=== PATIENT | male | born 1935 | race African-American/Black ===

== ENCOUNTER 2016-10-18 20:28 | Inpatient (IN) ==
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
[2016-10-18 20:54] LABS: BE 1.9 mmoll (-3.0-3.0); BLOOD TYPE ARTERIAL; METHB 1.3 % (0.0-1.5); O2(CT) 12.2 mL/dL (15.0-23.0); PO2(98.6) 50 mmHg (60-100); SAMPLE BLOOD; SAO2 84.5 % (95.0-100.0); THB 10.7 g/dL (11.5-17.4); pH(98.6) 7.32 (7.35-7.45)
[2016-10-18 21:16] LABS: PCO2(98.6) 56 mmHg (35-45)
[2016-10-18 21:17] LABS: ALLEN TEST YES; DRAW SITE R RADIAL; MODALITY CANNULA
[2016-10-18 21:37] LABS: MANUAL DIFF NEEDED? NO
[2016-10-18 21:57] LABS: BASO% 0.1 % (0.0-0.8); CALCIUM 8.5 mg/dL (8.8-10.2); EOS# 0.22 X1000 (0.0-0.7); EOS% 3.1 % (0.0-10.0); HEMATOCRIT 32.6 % (42.0-52.0); IMM GRAN# 0.01 X1000 (0.0-0.04); IMM GRAN% 0.1 % (0.0-0.5); LYMPH# 0.91 X1000 (1.2-3.4); LYMPH% 12.8 % (20.5-51.1); MCH 29.2 PG (27-31); MCHC 30.7 g/dL (33-37); MCV 95.3 FL (81-99); MONO# 0.76 X1000 (0.11-0.59); MONO% 10.7 % (1.7-9.3); MPV 11.4 FL (7.4-10.4); NEUT% 73.2 % (42.2-75.2); PLT 223 X1000 (130-400); POTASSIUM 4.3 mmol/L (3.5-5.1); RBC 3.42 XMIL (4.7-6.1); TOTAL BILIRUBIN 0.2 mg/dL (0.20-1.00); TOTAL PROTEIN 6.5 g/dL (6.3-8.3)
[2016-10-18] MEDS ORDERED: ZOSYN 3.375 GM/NS 50 ML IV ONE (22:35)
[2016-10-18 22:47] LABS: INR 1.09 (0.86-1.15); PTT PL 31.1 Seconds (22.6-43.9)
[2016-10-18 23:37] LABS: URINE CULTURE PL NEEDED? NO; URINE SOURCE CATH
--- NOTE | 2016-10-18 23:52 | EKG Report ---
Test Performed on : 10/18/2016 8:36:47 PM Test Reason : ER1 Blood Pressure : / mmHG Vent. Rate : 066 BPM Atrial Rate : 066 BPM P-R Int : 276 ms QRS Dur : 108 ms QT Int : 464 ms P-R-T Axes : 033 024 -08 degrees QTc Int : 486 ms Sinus rhythm. with 1st degree AV block. Low voltage QRS Prolonged QT Abnormal ECG When compared with ECG of 16-AUG-2016 04:16, No significant change was found Unconfirmed Result
[2016-10-18 23:55] LABS: UR AMPHETAMINES QUAL NONE DETECTED (NONE DETECT); UR BARBITUATES QUAL NONE DETECTED (NONE DETECT); UR BENZODIAZEPIN QUAL NONE DETECTED (NONE DETECT); UR CANNABINOIDS QUAL NONE DETECTED (NONE DETECT); UR COCAINE QUAL NONE DETECTED (NONE DETECT); UR MDMA QUAL NONE DETECTED (NONE DETECT); UR METHADONE QUAL NONE DETECTED (NONE DETECT); UR METHAMPHETAMINE QUAL PRESUMPTIVE POSITIVE (NONE DETECT); UR OPIATES QUAL NONE DETECTED (NONE DETECT); UR OXYCODONE QUAL NONE DETECTED (NONE DETECT); UR PCP QUAL NONE DETECTED (NONE DETECT); UR TCA QUAL NONE DETECTED (NONE DETECT)
[2016-10-19 00:16] LABS: BILIRUBIN URINE NEGATIVE (NEGATIVE); BLOOD URINE NEGATIVE (NEGATIVE); CLARITY CLEAR (CLEAR); COLOR YELLOW; GLUCOSE URINE NEGATIVE (NEGATIVE); LEUKOCYTES URINE NEGATIVE (NEGATIVE); NITRITE URINE NEGATIVE (NEGATIVE); PROTEIN URINE TRACE mg/dL (NEGATIVE); UROBILINOGEN URINE NORMAL
[2016-10-19 00:18] LABS: URINE CAST GRANULAR PRESENT /LPF; URINE EPITHELIAL CELLS <10 /HPF (<10); URINE RBC <10 /HPF (<10); URINE WBC <10 /HPF (<10)
[2016-10-19] MEDS ORDERED: TYLENOL ARTHRITIS PO PRN (00:23)
[2016-10-19] MEDS: ZOSYN 3.375 GM/NS 50 ML IV SCH ×4 (05:20→23:07)
[2016-10-19] MEDS: DUONEB (A & A) INH SCH ×5 (09:30→23:15)
[2016-10-19] MEDS: PRILOSEC PO SCH (10:02)
[2016-10-19] MEDS: NORVASC PO SCH (10:02)
[2016-10-19] MEDS: MIRALAX PO SCH (10:03)
[2016-10-19] MEDS: ASPIRIN PO SCH (10:03)
--- NOTE | 2016-10-19 11:53 | Diag Imaging Result Document ---
PROCEDURE NAME: CHEST-PORTABLE - 10/18/2016 ERECT PORTABLE CHEST: TIME: 2105 hours. FINDINGS: There is bibasilar atelectasis, which has worsened slightly, particularly with regard to the right middle lobe since the previous study of 08/17/2016. Otherwise, there has been no significant change. IMPRESSION: Atelectasis.
[2016-10-19] MEDS ORDERED: DUONEB (A & A) INH PRN (12:42)
[2016-10-19] MEDS ORDERED: NS 1,000 ML IV SCH (13:00)
[2016-10-19] MEDS: LEVAQUIN 750 MG/D5W 150 ML IV SCH (13:13)
[2016-10-19] MEDS: LOVENOX SUBQ SCH (13:15)
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
[2016-10-19] MEDS: HUMULIN R DOSE (PARKWAY) SUBQ SCH ×2 (17:17→21:37)
[2016-10-19] MEDS: HUMULIN 70/30 (PARKWAY) SUBQ SCH (17:34)
[2016-10-19 18:13] LABS: UR BARBITUATES QUAL NONE DETECTED (NONE DETECT); UR BENZODIAZEPIN QUAL NONE DETECTED (NONE DETECT); UR CANNABINOIDS QUAL NONE DETECTED (NONE DETECT); UR COCAINE QUAL NONE DETECTED (NONE DETECT); UR MDMA QUAL NONE DETECTED (NONE DETECT); UR METHADONE QUAL NONE DETECTED (NONE DETECT); UR OPIATES QUAL NONE DETECTED (NONE DETECT); UR OXYCODONE QUAL NONE DETECTED (NONE DETECT); UR PCP QUAL NONE DETECTED (NONE DETECT); UR TCA QUAL NONE DETECTED (NONE DETECT)
[2016-10-19 18:14] LABS: UR AMPHETAMINES QUAL NONE DETECTED (NONE DETECT); UR METHAMPHETAMINE QUAL PRESUMPTIVE POSITIVE (NONE DETECT)
[2016-10-19] MEDS ORDERED: NS 250 ML IV ONE (21:19)
[2016-10-19] MEDS: CELEXA PO SCH (21:36)
[2016-10-19] MEDS: FLOMAX PO SCH (21:37)
[2016-10-19] MEDS ORDERED: NS 250 ML ONE (21:54)
[2016-10-19] MEDS: XALATAN 0.005% OPH SOLN BOTH EYES SCH (23:07)
--- NOTE | 2016-10-20 00:46 | CONSULTATION ---
DATE OF CONSULTATION: 10/19/2016 ATTENDING PHYSICIAN: Dr. Pan. REASON FOR CONSULTATION: Respiratory distress. CHIEF COMPLAINT: Shortness of breath and lethargy. HISTORY OF PRESENTING ILLNESS: Mr. Lily Hussein is an 80-year-old male with history of diabetes, hypertension, history of CVA, who was apparently in his usual state of health, until somebody noticed that the patient was unresponsive in the [facility]. He had underwent CPR briefly, and was brought in by the EMS to the ER for further evaluation. On arrival of EMS, the patient was awake, alert and responsive. In the emergency room patient had an EKG, which was normal. Mild shortness of breath noted. No cough or wheezing at this point. In the emergency room patient labs revealed elevated CK-MB, along with a drug screen which was positive for methamphetamines. ALLERGIES: No known drug allergies. PAST MEDICAL HISTORY: Diabetes, CVA, hypotension. PAST SURGICAL HISTORY: Bilateral below-knee amputation, back surgery, exploratory laparotomy. FAMILY HISTORY: Positive for diabetes in his mother and sister, hypertension in brother and sister. MEDICATIONS: Flomax, lisinopril, hydrochlorothiazide. REVIEW OF SYSTEMS: Negative. PHYSICAL EXAMINATION: vital signs: Blood pressure 130/52, heart rate 60, respiratory rate is 14. General: Patient is lethargic, chronically ill-appearing, in moderate respiratory distress. Head and Neck: Normocephalic, atraumatic. Cardiac: S1-S2 heard. Lungs: Decreased breath sounds bilaterally with crackles. Bilateral wheezing diffuse wheezing heard. Abdomen: Soft. Extremities: No edema. PHOTOGRAPH MOUNTER: No confusion. LABS: 1. White count was 7.12, hemoglobin was 10, hematocrit was 32, platelet count was 223,000. PT 114, INR 1.09. ABG, pH 7.32, pCO2 of 56, PO2 of 50 on 2 L nasal cannula. 2. Chemistry: Sodium 142, potassium 4.3, chloride 105, CO2 of 30, BUN 30, creatinine 1.2. LFTs within normal limits. Troponin was 0.980, 2nd troponin was 0.346. Microbiology: Blood cultures negative. Reports chest x-ray shows atelectasis in the right middle lobe, and bibasilar atelectasis slightly worse in the right middle lobe, there has been no significant change. U-tox was positive for methamphetamine. ASSESSMENT AND PLAN: 1. Right-sided pneumonia, possible aspiration. 2. Hypoxic respiratory failure. Recommend continuing broad-spectrum antibiotics, and since patient is from [facility] cover for institutional or healthcare associated pneumonia. Follow up sputum and blood cultures. Continue supportive care along with aspiration precautions for hypoxia. Continue oxygen via nasal cannula to keep saturation above 90%. 3. Chronic hypercapnic respiratory failure. Continue monitoring oxygen saturation, as well as, CO2 levels. We will use BiPAP if necessary due to respiratory distress. 4. N-STEMI. Monitor closely, and monitor cardiac enzymes. Further management as per Cardiology. We will continue to monitor.
[2016-10-20] MEDS: DUONEB (A & A) INH SCH ×5 (02:45→20:14)
[2016-10-20] MEDS: ZOSYN 3.375 GM/NS 50 ML IV SCH ×4 (04:48→23:34)
[2016-10-20] MEDS: HUMULIN R DOSE (PARKWAY) SUBQ SCH ×4 (06:25→20:37)
[2016-10-20] MEDS: PRILOSEC PO SCH (06:33)
[2016-10-20 06:37] LABS: HEMATOCRIT 30.2 % (42.0-52.0); HEMOGLOBIN 8.9 g/dL (14.0-18.0); MCH 27.9 PG (27-31); MCHC 29.5 g/dL (33-37); MCV 94.7 FL (81-99); MPV 11.1 FL (7.4-10.4); RBC 3.19 XMIL (4.7-6.1)
[2016-10-20 06:58] LABS: HEMOGLOBIN A1C 6.4 % (4.8-6.0)
[2016-10-20 07:24] LABS: CALCIUM 8.3 mg/dL (8.8-10.2); POTASSIUM 3.6 mmol/L (3.5-5.1)
[2016-10-20] MEDS ORDERED: NON-FORMULARY MED (Lisinopril/Hydrochlorothiazide [Lisinopril-Hctz 20-25 Mg Tab] 1 EACH) PO SCH (09:00)
[2016-10-20] MEDS ORDERED: HYDROCHLOROTHIAZIDE PO SCH (09:00)
[2016-10-20] MEDS ORDERED: PRINIVIL PO SCH (09:00)
[2016-10-20] MEDS: HUMULIN 70/30 (PARKWAY) SUBQ SCH ×2 (09:03→16:36)
[2016-10-20] MEDS: TOPROL XL PO SCH (09:03)
[2016-10-20] MEDS: ASPIRIN PO SCH (09:03)
[2016-10-20] MEDS: MIRALAX PO SCH (09:03)
[2016-10-20] MEDS: NORVASC PO SCH (09:03)
--- NOTE | 2016-10-20 09:45 | Diag Imaging Result Document ---
PROCEDURE NAME: CHEST-PORTABLE - 10/20/2016 AP PORTABLE CHEST AT 0516 HOURS: FINDINGS: There is hazy opacity of the left base. There is atelectasis in the right base. The inspiration is generally suboptimal and overall the appearance of the chest has not changed since 10/18/2016. IMPRESSION: Bibasilar atelectasis. The possibility of pneumonia on the left cannot be excluded.
[2016-10-20] MEDS: LEVAQUIN 750 MG/D5W 150 ML IV SCH (11:46)
[2016-10-20] MEDS ORDERED: NS 1,000 ML IV SCH (13:00)
[2016-10-20] MEDS: LOVENOX SUBQ SCH ×2 (13:25→13:36)
--- NOTE | 2016-10-20 15:32 | PROGRESS NOTE ---
DATE: 10/20/2016 SUBJECTIVE: Patient has no focal complaints. OBJECTIVE: Vital signs: Blood pressure 124/59, heart rate of 82, respiratory rate 18, temperature 98 degrees, 97% on 2 L. Cardiovascular: Regular rate and rhythm. Pulmonary: Bilateral breath sounds. Clear to auscultation. GI: Soft, nontender, nondistended. Bowel sounds are positive. LABORATORY STUDIES: White count 6, hemoglobin and hematocrit of 8 and 30, platelets of 208,000. Chemistries: Sodium 146, BUN and creatinine of 34 and 1.5. IMAGING: Chest x-ray still shows left lower lobe infiltrate. PROBLEM LIST: 1. Pneumonia left lower lobe. He is on Levaquin and Zosyn. We will continue to monitor that. We will continue breathing treatments. He is obviously high aspiration risk. 2. Diabetes appears to be stable on current insulin regimen. 3. Acute kidney injury. His creatinine varies from 1.2, has been as high as 2.4, so I think he is fairly close to his baseline, but I am going to give him a little bit of hydration and we will follow. DISPOSITION: Possibly back to the snf in 1-2 days. I think he is stable for
[2016-10-20] MEDS: FLOMAX PO SCH (20:32)
[2016-10-20] MEDS: CELEXA PO SCH (20:32)
[2016-10-20] MEDS: XALATAN 0.005% OPH SOLN BOTH EYES SCH (21:37)
[2016-10-21] MEDS: DUONEB (A & A) INH SCH ×7 (03:00→22:45)
--- NOTE | 2016-10-21 03:41 | PROGRESS NOTE ---
DATE: 10/20/2016 SUBJECTIVE: Patient seen and examined. More awake. Continues to have respiratory distress on nasal cannula at 2-3 L. REVIEW OF SYSTEMS: Negative for fever. PHYSICAL EXAMINATION: Vitals: Blood pressure 124/59, heart rate 80s, respiratory rate 18, temperature 98 degrees, oxygen saturation 97-94% on 2 L. General: Chronically ill-appearing, in mild respiratory distress. Heart: S1-S2 heard. Lungs: Decreased breath sounds at the bases. No wheezing heard. GI: Soft. Bowel sounds are present. EDGE MOLDER: Slow to respond to questions but awake. LABS: White count 6000, hemoglobin 8, hematocrit 30, platelets 208,000. Chemistry: Sodium 146, BUN 24, creatinine 1.5. Imaging: Left lower lobe infiltrate. ASSESSMENT AND PLAN: 1. Left lower lobe pneumonia. 2. Hypoxic respiratory failure. 3. Diabetes. 4. Acute kidney injury. PLAN: 1. Patient clinically has improved slightly. Continue Levaquin and Zosyn to cover for healthcare associated pneumonia. Continue aspiration precautions. 2. For hypoxic respiratory failure, continue oxygen to keep saturation above 88 % to 90%. We will wean off of oxygen if sats > 88%. 3. Diabetes. Current insulin regimen. 4. Acute kidney injury. Monitor creatinine and gentle hydration. 5. Patient stable to be transferred to floor out of ICU. [facility]ITALNathaniel
[2016-10-21] MEDS: ZOSYN 3.375 GM/NS 50 ML IV SCH ×4 (04:42→23:42)
[2016-10-21] MEDS: PRILOSEC PO SCH (06:24)
[2016-10-21] MEDS: HUMULIN R DOSE (PARKWAY) SUBQ SCH ×2 (06:25→10:24)
[2016-10-21 06:35] LABS: HEMATOCRIT 29.6 % (42.0-52.0); HEMOGLOBIN 8.9 g/dL (14.0-18.0); MCH 28.3 PG (27-31); MCHC 30.1 g/dL (33-37); MCV 94.3 FL (81-99); MPV 12.3 FL (7.4-10.4); RBC 3.14 XMIL (4.7-6.1)
[2016-10-21 07:14] LABS: MAGNESIUM 1.9 mg/dL (1.5-2.7)
[2016-10-21 07:18] LABS: CALCIUM 8.3 mg/dL (8.8-10.2); POTASSIUM 4.2 mmol/L (3.5-5.1)
[2016-10-21] MEDS: MIRALAX PO SCH (10:11)
[2016-10-21] MEDS: ASPIRIN PO SCH (10:11)
[2016-10-21] MEDS: HUMULIN 70/30 (PARKWAY) SUBQ SCH ×2 (10:11→16:28)
[2016-10-21] MEDS: TOPROL XL PO SCH (10:11)
[2016-10-21] MEDS: NORVASC PO SCH (10:12)
[2016-10-21] MEDS: LEVAQUIN 750 MG/D5W 150 ML IV SCH (11:53)
--- NOTE | 2016-10-21 11:55 | PROGRESS NOTE ---
DATE: 10/21/2016 SUBJECTIVE: Patient resting quietly in bed. No complaints voiced. OBJECTIVE: Vital signs: Temp 97.7 degrees, pulse 83, respirations 18, blood pressure 133/66, saturating 100% on 2 L via nasal cannula. HEENT: Normocephalic and atraumatic. Pupils are equal, round, reactive to light. Extraocular movements are intact. The oropharynx and nares are clear. Neck: Supple. Lungs: Were clear to auscultation bilaterally with equal lung expansion and chest wall movement. The patient was noted to have some upper airway wheezing but lungs were clear. Heart: Regular rate and rhythm. No murmurs, rubs, or gallops. Abdomen: Abdomen is soft, nontender, nondistended. Bowel sounds are present x4 quadrants. Extremities: No clubbing, cyanosis, or edema. Neurological: Cranial nerves 2 through 12 appear grossly intact. LABORATORY DATA: Showed a white blood cell count of 7.50, hemoglobin 8.9, hematocrit 29.6, platelets of 188,000. Sodium of 142, potassium 4.2, chloride 107, CO2 25, BUN of 32, creatinine 1.5, glucose 81, magnesium 1.9. ASSESSMENT: 1. Left lower lobe pneumonia. Continue antibiotics and aspiration precautions. Continues to improve. 2. Hypoxic respiratory failure. Will continue his O2 to keep saturations between 88 and 99%. 3. Acute kidney injury. Continues to be around his baseline of 1.5. We have discontinued his IV hydration and will recheck a BMP in the a.m. 4. Diabetes. Stable on current insulin regimen. DISPOSITION: Will discharge back to the retirement hopefully in the a.m. if he continues to improve. Dictated by EMMA Mata for Wyatt Pan MD
[2016-10-21] MEDS: LOVENOX SUBQ SCH (14:14)
[2016-10-21] MEDS: HUMULIN R (PARKWAY) SUBQ SCH ×2 (16:28→23:39)
[2016-10-21] MEDS: XALATAN 0.005% OPH SOLN BOTH EYES SCH (20:07)
[2016-10-21] MEDS: FLOMAX PO SCH (20:07)
[2016-10-21] MEDS: CELEXA PO SCH (20:07)
--- NOTE | 2016-10-21 21:07 | PROGRESS NOTE ---
DATE: 10/21/2016 SUBJECTIVE: Patient seen and examined this afternoon. Awake. No acute changes since yesterday. Continues to have respiratory distress on oxygen noted. [place] gurgling sound coming from oral cavity from secretions. OBJECTIVE: Vital Signs: Temperature 97. Pulse 83. Oxygen saturation is 100% on 2 L. Blood pressure : 123/76 Head and Neck: Normocephalic, atraumatic. Lungs: Decreased air entry with scattered wheezing especially in the upper airways. Heart: S1, S2 heard. Central Nervous System: Awake. Answers simple questions. Slow to respond to commands. LABORATORY DATA: White count is 7000, hemoglobin 8.9, hematocrit 29, sodium 142 , potassium 4.2, chloride 107, CO2 of 25, BUN 32, creatinine 1.5. ASSESSMENT: 1. Left lower lobe pneumonia. 2. Hypoxic respiratory failure. 3. Possible chronic aspiration. 4. Acute kidney injury. 5. Diabetes. PLAN: Continue antibiotics. Cultures have been negative. On aspiration precautions. The patient appears to have clinically improved to a certain extent. Continue oxygen to keep saturation above 88% to 90%. Recommend out of bed to chair and incentive spirometry if possible. Monitor renal function and blood sugars on current regimen. Discharge to longterm when patient is close to baseline. [facility]
[2016-10-22] MEDS: DUONEB (A & A) INH SCH ×4 (03:26→15:06)
[2016-10-22] MEDS: PRILOSEC PO SCH (06:13)
[2016-10-22] MEDS: ZOSYN 3.375 GM/NS 50 ML IV SCH ×3 (06:14→17:25)
[2016-10-22] MEDS: HUMULIN R (PARKWAY) SUBQ SCH ×3 (06:41→17:14)
[2016-10-22] MEDS ORDERED: NS 1,000 ML ONE (09:20)
[2016-10-22] MEDS: MIRALAX PO SCH (09:41)
[2016-10-22] MEDS: TOPROL XL PO SCH (09:41)
[2016-10-22] MEDS: HUMULIN 70/30 (PARKWAY) SUBQ SCH ×2 (09:41→17:14)
[2016-10-22] MEDS: ASPIRIN PO SCH (09:41)
[2016-10-22] MEDS: NORVASC PO SCH (09:41)
[2016-10-22] MEDS: LEVAQUIN 750 MG/D5W 150 ML IV SCH (12:52)
--- NOTE | 2016-10-22 14:30 | DISCHARGE SUMMARY ---
ADMISSION DATE: 10/19/2016 DISCHARGE DATE: 10/22/2016 DISCHARGE DIAGNOSES: 1. Left lower lobe pneumonia. 2. Episodic periods of apnea with acute respiratory failure. 3. Diabetes. 4. History of cerebrovascular accident with dysphagia. 5. Hypertension. ADMISSION DIAGNOSES: 1. Left lower lobe pneumonia. 2. Apnea. 3. Diabetes. 4. Hypertension. HISTORY OF PRESENT ILLNESS AND HOSPITAL COURSE: Briefly this is an 80-year-old male with history of diabetes and hypertension who came from half-way with reported unresponsive episode but I think it was likely associated with apnea. Reportedly CPR was involved or CPR had been done but patient did not have an acute cardiac event, although he did have a mild elevation in his troponins. Also urine drug screen x2 was positive for methamphetamine, that was on admission. He was placed empirically on Zosyn and Levaquin because of institutional acquired coverage. Apnea episode was thought possibly to be associated with pneumonia versus aspiration event versus central or obstructive sleep apnea. The patient was admitted, placed on antibiotics. Repeat chest x-ray just was read as bibasilar atelectasis with possible left pneumonia. Patient slowly clinically improved. He does have some renal insufficiency. Baseline creatinine usually less than 1.5 I believe but has been as high as 2.4. Oxygen was maintained. He is 97% to 100% on 2 L. The patient has been afebrile since admission. He had no white count. Hemoglobin and hematocrit were 8 and 29 after hydration. Chemistry prior to discharge was 1.5. That was the day before discharge. He was evaluated by speech therapy and felt that he could continue his pureed diet with thickened liquids. Pulmonary was consulted because of his apnea episode, recommended keeping O2 to 88% to 90% I felt patient was close to baseline and stable for discharge on 10/22/2016. DISCHARGE MEDICATIONS: Norvasc 5 daily, Flomax 0.4 daily, Prilosec 40 daily, Xalatan 0.05% 2.5 mL 1 drop both eyes, NPH regular insulin 77 units daily in the morning and 5 units at night, Tylenol Arthritis 650 q.6 h., aspirin 81 daily, DuoNeb q.6 h., MiraLAX 17 daily, Toprol-XL 25 daily, and Augmentin 500 q.12 for another 7 days. DISCHARGE INSTRUCTIONS: 1. Would recommend follow up chest x-ray in 4-6 weeks. 2. Pureed diet. 3. Oxygen keep to saturations above 92%, especially at night. 4. BNP and CBC in 1 week. 5. Consideration for outpatient sleep study. 6. Continue to follow. DISCHARGE CONDITION: Stable. TIME SPENT: 35 minute discharge.
[2016-10-22] MEDS: LOVENOX SUBQ SCH (15:20)
[2016-10-22 16:00] VITALS: BP 171/65
--- NOTE | 2016-10-23 00:29 | PROGRESS NOTE ---
DATE: 10/22/2016 SUBJECTIVE: Patient seen and examined. Shortness of breath and respiratory distress slightly better. No significant audible wheezes or gurgling heard today. No fevers. Continues to require 2-3 L of oxygen. PHYSICAL EXAMINATION: General: Chronically ill-appearing, in mild respiratory distress. Heart: S1-S2 heard. Lungs: Decreased air entry bilaterally. Abdomen: Soft. Extremities: No edema. RADIOGRAPHER MAMMOGRAPHER: No confusion. Neurologic: Awake. LABS: Reviewed. ASSESSMENT AND PLAN: 1. Pneumonia. 2. Hypoxic respiratory failure. 3. History of CVA. PLAN: Patient has improved pulmonary rodriguez, he is likely close to baseline. Continue antibiotics, aspiration precautions and oxygen to keep saturation above 88 to 90%. Okay from pulmonary standpoint to be discharged to shelter. Plan discussed with Dr. Pan. [facility]
== END 2016-10-22 17:40 | DRG 190 ==
LOC: P.ED 20:28 → P.ICU 10-19 → P.MEDSURG 10-20 15:27
PROVIDERS: ATTEND Internal Medicine
DX: J44.0 Chronic obstructive pulmonary disease with (acute) lower respiratory infection (principal); J18.9 Pneumonia, unspecified organism; J96.01 Acute respiratory failure with hypoxia; N17.9 Acute kidney failure, unspecified; J96.12 Chronic respiratory failure with hypercapnia; E11.9 Type 2 diabetes mellitus without complications; I69.391 Dysphagia following cerebral infarction; J98.11 Atelectasis; R13.10 Dysphagia, unspecified; I10 Essential (primary) hypertension; Y95 Nosocomial condition; Z86.14 Personal history of Methicillin resistant Staphylococcus aureus infection; Z89.512 Acquired absence of left leg below knee; Z89.511 Acquired absence of right leg below knee; Z83.3 Family history of diabetes mellitus; Z82.49 Family history of ischemic heart disease and other diseases of the circulatory system; Z79.82 Long term (current) use of aspirin; Z79.899 Other long term (current) drug therapy
CPT/HCPCS: 36415; 51702; 71010; 80048; 80053; 81001; 82550; 82805; 82948; 83036; 83605; 83735; 84100; 84484; 85025; 85027; 85610; 85730; 87040; 87070; 87205; 93005; 94640; 94668; 94761; 94799; 96365; G0477; J1650; J1815; J2543; J7030; J7040; J7050; 92610-GN

== ENCOUNTER 2017-01-23 12:46 | Inpatient (IN) ==
[2017-01-23 13:38] LABS: MANUAL DIFF NEEDED? NO
[2017-01-23 13:46] LABS: BASO% 0.4 % (0.0-0.8); EOS# 0.46 X1000 (0.0-0.7); EOS% 6.1 % (0.0-10.0); HEMATOCRIT 38.5 % (42.0-52.0); HEMOGLOBIN 12.2 g/dL (14.0-18.0); LYMPH# 2.79 X1000 (1.2-3.4); LYMPH% 37.2 % (20.5-51.1); MCH 28.9 PG (27-31); MCHC 31.7 g/dL (33-37); MCV 91.2 FL (81-99); MONO# 0.83 X1000 (0.11-0.59); MONO% 11.1 % (1.7-9.3); MPV 11.4 FL (7.4-10.4); NEUT% 45.2 % (42.2-75.2); PLT 295 X1000 (130-400); RBC 4.22 XMIL (4.7-6.1)
--- NOTE | 2017-01-23 13:49 | Diag Imaging Result Document ---
PROCEDURE NAME: CHEST-PORTABLE - 01/23/2017 PORTABLE CHEST X-RAY: COMPARISON: 11/13/2016. FINDINGS: Lung volumes are critically low, stable from prior. There is significant infiltrate in the left lower lobe, stable from prior. Heart size is probably enlarged. The opacity in the right mid lung has resolved. IMPRESSION: Critically low lung volumes. Significant infiltrate in the left lung base. Stable from prior.
[2017-01-23 14:01] LABS: INR 1.07; PROTIME 11.3 Seconds (9.2-11.7)
[2017-01-23 14:16] LABS: AGAP 11; ALBUMIN 2.9 g/dL (3.5-5.0); ALKALINE PHOSPHATASE 66 U/L (32-122); BUN 16 mg/dL (8-22); CALCIUM 8.5 mg/dL (8.8-10.2); CHLORIDE 105 mmol/L (98-107); CK PROFILE 41 U/L (24-204); COSMO 289; GOT 8 U/L (10-34); GPT 8 U/L (10-44); MAGNESIUM 1.7 mg/dL (1.5-2.7); POTASSIUM 4.4 mmol/L (3.5-5.1); SODIUM 142 mmol/L (136-145); TCO2 26 mmol/L (25-35); TOTAL BILIRUBIN 0.24 mg/dL (0.20-1.00); TOTAL PROTEIN 6.4 g/dL (6.3-8.3)
--- NOTE | 2017-01-23 14:17 | EKG Report ---
Test Performed on : 01/23/2017 12:53:35 PM Test Reason : Chest Pain Blood Pressure : / mmHG Vent. Rate : 074 BPM Atrial Rate : 074 BPM P-R Int : 282 ms QRS Dur : 102 ms QT Int : 420 ms P-R-T Axes : 040 -63 004 degrees QTc Int : 466 ms Sinus rhythm. with 1st degree AV block. Left axis deviation Abnormal ECG When compared with ECG of 27-OCT-2016 19:13, [place] interval has increased QRS axis shifted left Unconfirmed Result
[2017-01-23] MEDS ORDERED: LASIX IV ONE (15:51)
[2017-01-23] MEDS ORDERED: LEVAQUIN 750 MG/D5W 750 MG/150 ML IVPB IV ONE (16:41)
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
[2017-01-23] MEDS ORDERED: VANCOMYCIN IV PER PHARMACY MISC SCH (17:39)
[2017-01-23] MEDS ORDERED: DUONEB (A & A) INH PRN (17:39)
[2017-01-23] MEDS ORDERED: ZOSYN 2.25 GM/NS 2.25 GM/50 ML IVPB IV SCH (17:45)
[2017-01-23] MEDS ORDERED: NITROGLYCERIN TOP ONE (17:56)
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
[2017-01-23 18:25] LABS: IRON SATURATION 25 %; TIBC 185 ug/dL; TOTAL IRON 46 ug/dL (53-167); UNBOUND IRON 139 ug/dL (112-346)
[2017-01-23 18:26] LABS: HEMOGLOBIN A1C 7.6 % (4.8-6.0)
[2017-01-23 19:02] LABS: FREE T4 1.31 ng/dL (0.93-1.70)
[2017-01-23] MEDS: DUONEB (A & A) INH SCH ×2 (20:30)
[2017-01-23] MEDS ORDERED: VANCOMYCIN 1,750 MG in NS 250 ML IV ONE (21:00)
[2017-01-23] MEDS: ARICEPT PO SCH (22:14)
[2017-01-23] MEDS: LASIX IV SCH (22:14)
[2017-01-23] MEDS: FLOMAX PO SCH (22:15)
[2017-01-23] MEDS: ZOSYN 3.375 GM/NS 3.375 GM/50 ML IVPB IV SCH (22:16)
[2017-01-24] MEDS: DUONEB (A & A) INH SCH ×5 (03:22→21:46)
[2017-01-24] MEDS: ZOSYN 3.375 GM/NS 3.375 GM/50 ML IVPB IV SCH ×4 (04:46→22:45)
[2017-01-24 04:57] LABS: URINE CULTURE NEEDED? NO; URINE MICRO REVIEW NEEDED? NO; URINE SOURCE CLEAN CATCH
[2017-01-24 05:00] LABS: BILIRUBIN URINE NEGATIVE (NEGATIVE); BLOOD URINE NEGATIVE (NEGATIVE); COLOR STRAW; GLUCOSE URINE NEGATIVE (NEGATIVE); LEUKOCYTES URINE NEGATIVE (NEGATIVE); NITRITE URINE NEGATIVE (NEGATIVE); PROTEIN URINE TRACE mg/dL (NEGATIVE); SP GRAVITY URINE 1.007; TURBIDITY URINE CLEAR (CLEAR); UROBILINOGEN URINE NORMAL (NORMAL)
[2017-01-24 05:01] LABS: UR EPITHELIAL CELLS <10 /HPF (<10); URINE BACTERIA NEGATIVE /HPF; URINE RBC <10 /HPF (<10); URINE WBC <10 /HPF (<10)
[2017-01-24 05:11] LABS: UR CREAT RANDOM 23.5 mg/dL (14-26)
[2017-01-24] MEDS: LASIX IV SCH ×2 (05:27→17:42)
--- NOTE | 2017-01-24 07:06 | EKG Report ---
Test Performed on : 01/24/2017 06:50:57 AM Test Reason : elevated troponin Blood Pressure : / mmHG Vent. Rate : 074 BPM Atrial Rate : 074 BPM P-R Int : 258 ms QRS Dur : 104 ms QT Int : 436 ms P-R-T Axes : 042 -52 -33 degrees QTc Int : 483 ms Sinus rhythm. with 1st degree AV block. Left axis deviation Pulmonary disease pattern Nonspecific T wave abnormality Abnormal ECG When compared with ECG of 23-JAN-2017 12:53, No significant change was found Confirmed by Javier DALLAS, Mayur Mederos ([id number]) on 01/24/2017 5:44:25 PM
[2017-01-24 07:34] LABS: HEMATOCRIT 34.2 % (42.0-52.0); HEMOGLOBIN 10.7 g/dL (14.0-18.0); MCHC 31.3 g/dL (33-37); MCV 92.7 FL (81-99); MPV 10.7 FL (7.4-10.4); RBC 3.69 XMIL (4.7-6.1)
[2017-01-24] MEDS: HUMALOG SUBQ SCH ×5 (07:42→22:46)
[2017-01-24 07:45] LABS: AGAP 3; BUN 16 mg/dL (8-22); CALCIUM 8.7 mg/dL (8.8-10.2); CHLORIDE 105 mmol/L (98-107); COSMO 295; HDL 34 mg/dL (35-55); LDL 95 mg/dL; SODIUM 146 mmol/L (136-145); TCO2 38 mmol/L (25-35); TRIGLYCERIDES 107 mg/dL (39-160); VLDL 21 mg/dL
[2017-01-24 07:47] LABS: MAGNESIUM 1.5 mg/dL (1.5-2.7)
--- NOTE | 2017-01-24 08:35 | Diag Imaging Result Document ---
PROCEDURE NAME: CT THORAX W/O CONTRAST - 01/24/2017 CT CHEST: A CT dose reduction protocol was used. COMPARISON: 10/28/2016. FINDINGS: Stable cardiomegaly and moderate pericardial effusion. Stable small- to-moderate pleural effusions bilaterally. Grossly stable dependent atelectasis bilaterally. Stable interstitial pulmonary edema. Stable extensive gynecomastia. Bony structures are intact. IMPRESSION: No change from prior. [facility]
[2017-01-24] MEDS: XALATAN 0.005% OPH SOLN BOTH EYES SCH ×2 (09:48→22:45)
[2017-01-24] MEDS: LOPRESSOR PO SCH (10:24)
[2017-01-24] MEDS: ASPIRIN PO SCH (10:25)
[2017-01-24] MEDS: PROTONIX PO SCH (10:25)
[2017-01-24] MEDS: MIRALAX PO SCH (10:25)
[2017-01-24] MEDS: LOVENOX SUBQ SCH (10:25)
[2017-01-24] MEDS ORDERED: MAGNESIUM SULFATE 2 GM/S.W.I. 2 GM/50 ML IVPB IV ONE (12:36)
--- NOTE | 2017-01-24 13:08 | PROGRESS NOTE ---
DATE: 01/24/2017 SUBJECTIVE: The patient complains of burning whenever he urinates but otherwise he states that he feels okay today. OBJECTIVE: Vital Signs: Temperature 97.5 degrees, blood pressure 147/74, heart rate 76, respirations 16, O2 saturation 97% on room air. General: This is a chronically ill-appearing, elderly male, lying in bed, in no acute distress. Head normocephalic, atraumatic. Heart: S1, S2. Normal. Regular rate and rhythm. Lungs: No crackles, no rales. Equal air entry bilaterally. Abdomen: Positive bowel sounds. Soft, nontender, nondistended. Extremities: The patient has bilateral [id number]-hjy-lerq amputation. There is some edema involving his thighs. Neurologic: The patient is alert and oriented. LABS: White blood cell count 6, hemoglobin 10, hematocrit 34, platelets 288,000. Sodium 146, potassium 4, chloride 105, CO2 38, BUN 16, creatinine 1, glucose 166. Troponin 0.124. ASSESSMENT AND PLAN: 1. Acute congestive heart failure exacerbation. We will continue to diurese the patient with IV Lasix. We will also monitor daily weights and the patient's intake and output closely. 2. Moderate pericardial effusion. Will order a 2-dimensional echocardiogram. Cardiology has been consulted. 3. Bilateral pleural effusions with pulmonary edema. Again the patient will be diuresed with Lasix. 4. Hypertension. Controlled. Continue on metoprolol. 5. Benign prostatic hypertrophy. Continue on Flomax. 6. Status post bilateral xcyde-die-scea amputation. Aware. 7. Dementia. Continue on Aricept. 8. Hypernatremia. We will continue to monitor the patient's sodium closely. 9. Diabetes mellitus type 2. Continue on sliding scale insulin. 10. Hypomagnesemia. Will replace the patient's magnesium. 11. Anemia of chronic disease. We will monitor the patient's hemoglobin and hematocrit closely. 12. Deep vein thrombosis prophylaxis. Continue on Lovenox. cc: Aimee Hong MD
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
[2017-01-24] MEDS ORDERED: NS 250 ML ONE (15:26)
[2017-01-24] MEDS: TYLENOL ARTHRITIS PO PRN (17:50)
--- NOTE | 2017-01-24 18:24 | ECHO REPORT ---
ORDER DATE: 01/24/2017 MEASUREMENTS: 1. Left ventricular end-diastolic 3.6, end-systolic diameter 2.3. 2. Septal thickness 1.1. 3. Post wall thickness 1.1. 4. Left atrium 4. 5. Aortic root 3.4. SUMMARY: 1. Technically difficult study due to limited acoustic window quality. 2. Aortic, mitral, tricuspid, and pulmonic valves are without structural abnormality with mild (1+ ) mitral regurgitation. Aortic root is normal in size. 3. Normal left ventricular chamber size with moderate concentric left hypertrophy is demonstrated with some sigmoid hypertrophy of the basal septum. Estimated left ejection fraction 65% without wall motion abnormality evident. Left atrium is mildly enlarged. Right atrium and right ventricle are of normal size with grossly preserved right ventricular systolic performance. 4. Tiny posterior pericardial effusion. 5. Appearance of inferior vena cava suggests some degree of elevated central venous pressure. CONCLUSIONS: 1. Difficult study. 2. Mild mitral regurgitation. 3. Moderate concentric left hypertrophy with estimated left ejection fraction of 65%. 4. Mild mitral regurgitation. 5. Tiny posterior pericardial effusion. 6. Elevated central venous pressure suggested. cc: MD Aimee Medel MD
[2017-01-24] MEDS: FLOMAX PO SCH (22:44)
[2017-01-24] MEDS: ARICEPT PO SCH (22:44)
[2017-01-25] MEDS: DUONEB (A & A) INH SCH ×7 (00:46→20:04)
[2017-01-25] MEDS: ZOSYN 3.375 GM/NS 3.375 GM/50 ML IVPB IV SCH ×3 (05:02→17:28)
[2017-01-25] MEDS: LASIX IV SCH ×2 (05:06→17:29)
[2017-01-25] MEDS: HUMALOG SUBQ SCH ×3 (06:35→17:30)
[2017-01-25 07:49] LABS: HEMATOCRIT 31.1 % (42.0-52.0); HEMOGLOBIN 9.6 g/dL (14.0-18.0); MCH 28.9 PG (27-31); MCHC 30.9 g/dL (33-37); MCV 93.7 FL (81-99); MPV 10.8 FL (7.4-10.4); RBC 3.32 XMIL (4.7-6.1)
[2017-01-25 08:01] LABS: AGAP 10; BUN 17 mg/dL (8-22); CALCIUM 8.6 mg/dL (8.8-10.2); CHLORIDE 103 mmol/L (98-107); COSMO 291; MAGNESIUM 1.7 mg/dL (1.5-2.7); SODIUM 145 mmol/L (136-145); TCO2 32 mmol/L (25-35)
[2017-01-25] MEDS ORDERED: VANCOMYCIN 1,500 MG in NS 250 ML IV SCH (09:00)
[2017-01-25] MEDS: ASPIRIN PO SCH (09:23)
[2017-01-25] MEDS: LOVENOX SUBQ SCH (09:23)
[2017-01-25] MEDS: LOPRESSOR PO SCH (09:23)
[2017-01-25] MEDS: PROTONIX PO SCH (09:24)
[2017-01-25] MEDS: MIRALAX PO SCH (09:24)
[2017-01-25] MEDS ORDERED: CALMOSEPTINE OINTMENT TOP PRN (10:41)
[2017-01-25] MEDS: TYLENOL ARTHRITIS PO PRN ×2 (12:45→17:31)
[2017-01-25] MEDS ORDERED: MAGNESIUM SULFATE 2 GM/S.W.I. 2 GM/50 ML IVPB IV ONE (13:44)
--- NOTE | 2017-01-25 14:30 | PROGRESS NOTE ---
DATE: 01/25/2017 SUBJECTIVE: Mr. Hussein says he feels better today. He is tolerating oral intake. He reports his breathing has improved somewhat as well. PHYSICAL EXAMINATION: He is afebrile. Heart rate is 76, blood pressure 114/51. Intake and output: His I's and O's appear to be negative around 500 mL or so. Difficult to interpret based on limited intake being recorded. Generally: No acute distress. Cardiovascular: He sounds to be in a regular rate and rhythm. No obvious murmurs. He has no lower extremity edema noted in his bilateral lower extremity stumps. Chest: Sounds clear but he has poor inspiratory effort. Abdomen: Soft, nontender, nondistended. PERTINENT DATA: White count 7, hematocrit 31, platelet count 267,000. Sodium 145, potassium 4. BUN 17, creatinine 1.3. ASSESSMENT: 1. Diastolic heart failure. 2. Hypertension. PLAN: Patient seems to be improving from a symptom standpoint. His proBNP [place] 44961 on presentation. I will recheck a level in the morning. We will proceed from there. cc: Rip Wilson MD
--- NOTE | 2017-01-25 14:44 | PROGRESS NOTE ---
DATE: 01/25/2017 SUBJECTIVE: The patient is resting comfortably in bed. He has no complaints. OBJECTIVE: Vital Signs: Temperature 97.9 degrees, blood pressure 146/69, heart rate 83, respirations 18, O2 saturation is 93% on Ventimask. General: This is a chronically ill- appearing, elderly male, lying in bed, in no acute distress. Head: Normocephalic, atraumatic. Heart: S1, S2. Normal. Regular rate and rhythm. Lungs: Clear to auscultation bilaterally. No wheezes. No rales. No rhonchi. Abdomen: Positive bowel sounds. Soft, nontender, nondistended. Extremities: The patient is a bilateral [id number] amputee. There is some swelling on the stump. LABS: White blood cell count 7, hemoglobin 9.6, hematocrit 31, platelets 267,000. Sodium 145, potassium 4, chloride 103, CO2 32, BUN 17, creatinine 1.3, glucose 104, magnesium 1.7, phosphorus 4.2. ASSESSMENT AND PLAN: 1. Acute congestive heart failure exacerbation. Continue to diurese with Lasix. Will monitor the patient's I's and O's and daily weights. Cardiology is following. 2. Small pericardial effusion. Stable. 3. Bilateral pleural effusions and pulmonary edema. Continue on Lasix. 4. Acute kidney injury. This is most likely secondary to diuretic usage. Will continue to monitor this closely. 5. Hypertension. Controlled. 6. Benign prostatic hypertrophy. Continue on Flomax. 7. Dementia. Continue on Aricept. 8. Status post bilateral [id number] amputations. Aware. 9. Diabetes mellitus type 2. Continue on sliding scale insulin. 10. Hypomagnesemia. Will replace the patient's magnesium. 11. Deep vein thrombosis prophylaxis. Continue on Lovenox. cc: Aimee Hong MD
[2017-01-25] MEDS: ARICEPT PO SCH (21:43)
[2017-01-25] MEDS: XALATAN 0.005% OPH SOLN BOTH EYES SCH (21:43)
[2017-01-25] MEDS: FLOMAX PO SCH (21:43)
[2017-01-25] MEDS: HUMULIN R SUBQ SCH (21:44)
[2017-01-26] MEDS: DUONEB (A & A) INH SCH ×5 (03:18→20:05)
[2017-01-26] MEDS: ZOSYN 3.375 GM/NS 3.375 GM/50 ML IVPB IV SCH ×5 (05:47→22:03)
[2017-01-26] MEDS: LASIX IV SCH ×2 (05:47→17:50)
[2017-01-26] MEDS: HUMULIN R SUBQ SCH ×4 (06:02→22:02)
[2017-01-26 07:11] LABS: HEMATOCRIT 32.1 % (42.0-52.0); HEMOGLOBIN 9.8 g/dL (14.0-18.0); MCH 28.8 PG (27-31); MCHC 30.5 g/dL (33-37); MCV 94.4 FL (81-99); MPV 10.5 FL (7.4-10.4); RBC 3.4 XMIL (4.7-6.1)
[2017-01-26] MEDS ORDERED: NITROGLYCERIN SL PRN (07:35)
[2017-01-26 07:44] LABS: CALCIUM 8.1 mg/dL (8.8-10.2); MAGNESIUM 1.9 mg/dL (1.5-2.7)
[2017-01-26] MEDS: LOVENOX SUBQ SCH (09:49)
[2017-01-26] MEDS: ASPIRIN PO SCH (09:49)
[2017-01-26] MEDS: MIRALAX PO SCH (09:49)
[2017-01-26] MEDS: LOPRESSOR PO SCH (09:49)
[2017-01-26] MEDS: PROTONIX PO SCH (09:49)
[2017-01-26] MEDS: TYLENOL ARTHRITIS PO PRN (09:50)
--- NOTE | 2017-01-26 14:32 | PROGRESS NOTE ---
DATE: 01/26/2017 SUBJECTIVE: Mr. Hussein says his breathing is somewhat short today. He is tolerating oral intake. No chest pain. PHYSICAL EXAMINATION: Vital signs: Afebrile. Heart rate is 93, blood pressure 134/68. General: No acute distress. Cardiovascular: He sounds to be in a regular rate and rhythm. No murmurs. Chest: He has somewhat diminished breath sounds heard diffusely. He has poor inspiratory effort. Abdomen: Soft, nontender, nondistended. He has no obvious organomegaly. Skin Exam: Warm and dry throughout. PERTINENT DATA: Notably his O2 saturations have been very stable on 2 L of oxygen which is a stable rate for him. His white count is 6.2, hematocrit 32.1, platelet count 266,000. Sodium 140, potassium 4, BUN 21, creatinine 1.4. That is up from 17 and 1.3 yesterday and 16 and 1.0 the day before. His proBNP is 9,537 which is down from 15,660. ASSESSMENT: Diastolic heart failure. PLAN: I will check a chest x-ray on the patient considering he has not had an evaluation of his chest since the . His proBNP is down and his I's and O's would suggest that he is diuresing. In addition, his BUN and creatinine have increased suggesting diuresis as well. We will assess the chest x-ray and proceed from there. cc: Rip Wilson MD
--- NOTE | 2017-01-26 15:21 | Diag Imaging Result Document ---
PROCEDURE NAME: CHEST-PORTABLE - 01/26/2017 PORTABLE CHEST X-RAY: COMPARISON: 01/23/2017. FINDINGS: Stable critically low lung volumes. Stable hazy left basilar infiltrate and/or effusion. Stable cardiomegaly. The right lung remains grossly clear. IMPRESSION: No change from prior.
--- NOTE | 2017-01-26 16:37 | PROGRESS NOTE ---
DATE: 01/26/2017 SUBJECTIVE: The patient is resting comfortably. He did have some chest pain early this morning. However it has resolved. He states that his shortness of breath has improved. He still has a productive cough. OBJECTIVE: Vital Signs: Temperature 97.9 degrees, blood pressure 134/68, heart rate 89, respirations 18, O2 saturations 96% on 2 L nasal cannula. General: This is an elderly gentleman lying in bed in no acute distress. Head: Normocephalic, atraumatic. Heart: S1, S2. Normal. Regular rate and rhythm. Lungs: Coarse breath sounds bilaterally. Abdomen: Positive bowel sounds. Soft, nontender, nondistended. Extremities: No edema. No cyanosis. No calf tenderness. The patient is a bilateral amputee. Neurologic: The patient is alert and oriented x3. LABS: White blood cell count 6.2, hemoglobin 9.8, hematocrit 32, platelets 266,000. Sodium 140, potassium 4, chloride 98, CO2 32, BUN 21, creatinine 1.4, glucose 223, proBNP 9537. ASSESSMENT AND PLAN: 1. Acute on chronic diastolic congestive heart failure exacerbation. Slowly improving. Continue to diurese with Lasix. Cardiology is following. 2. Acute kidney injury. This is most likely secondary to Lasix. Will continue to monitor this closely while the patient is being diuresed. 3. Diabetes mellitus type 2. Continue on sliding scale insulin. Add Levemir. 4. Dementia. Continue on Aricept. 5. Constipation. Continue on scheduled laxatives. 6. Benign prostatic hypertrophy. Continue on Flomax. 7. Status post bilateral [id number] amputation. Aware. 8. Deep vein thrombosis prophylaxis. Continue on Lovenox. cc: Aimee Hong MD
[2017-01-26] MEDS: XALATAN 0.005% OPH SOLN BOTH EYES SCH (20:00)
[2017-01-26] MEDS: ARICEPT PO SCH (20:00)
[2017-01-26] MEDS: FLOMAX PO SCH (20:00)
[2017-01-26] MEDS: MUCINEX PO SCH (20:00)
[2017-01-26] MEDS: MUCOMYST 20% INH SCH (20:05)
[2017-01-27] MEDS: DUONEB (A & A) INH SCH ×4 (03:10→21:00)
--- NOTE | 2017-01-27 05:49 | EKG Report ---
Test Performed on : 01/26/2017 08:28:29 AM Test Reason : chest pain Blood Pressure : / mmHG Vent. Rate : 092 BPM Atrial Rate : 092 BPM P-R Int : 258 ms QRS Dur : 104 ms QT Int : 382 ms P-R-T Axes : 052 -61 058 degrees QTc Int : 472 ms Sinus rhythm. with 1st degree AV block. Left axis deviation Possible Septal infarct , old Abnormal ECG When compared with ECG of 24-JAN-2017 06:50, No significant change was found Confirmed by Javier DALLAS, Mayur Mederos ([id number]) on 01/27/2017 7:54:29 PM
[2017-01-27] MEDS: ZOSYN 3.375 GM/NS 3.375 GM/50 ML IVPB IV SCH ×4 (05:51→22:58)
[2017-01-27] MEDS: LASIX IV SCH (05:51)
[2017-01-27] MEDS: HUMULIN R SUBQ SCH ×4 (06:21→23:02)
[2017-01-27 06:43] LABS: MANUAL DIFF NEEDED? NO
[2017-01-27 06:54] LABS: BASO% 0.3 % (0.0-0.8); EOS# 0.49 X1000 (0.0-0.7); EOS% 6.7 % (0.0-10.0); HEMATOCRIT 32.8 % (42.0-52.0); LYMPH# 2.06 X1000 (1.2-3.4); LYMPH% 28.2 % (20.5-51.1); MCH 28.6 PG (27-31); MCHC 30.5 g/dL (33-37); MCV 93.7 FL (81-99); MONO% 9.6 % (1.7-9.3); MPV 10.7 FL (7.4-10.4); NEUT% 55.2 % (42.2-75.2); PLT 255 X1000 (130-400)
[2017-01-27 07:20] LABS: CALCIUM 8.5 mg/dL (8.8-10.2); MAGNESIUM 1.9 mg/dL (1.5-2.7); POTASSIUM 4.3 mmol/L (3.5-5.1)
[2017-01-27] MEDS: MUCOMYST 20% INH SCH ×2 (08:14→21:00)
[2017-01-27] MEDS: PROTONIX PO SCH (09:25)
[2017-01-27] MEDS: MUCINEX PO SCH ×2 (09:25→22:59)
[2017-01-27] MEDS: MIRALAX PO SCH (09:25)
[2017-01-27] MEDS: LOPRESSOR PO SCH ×2 (09:25→22:59)
[2017-01-27] MEDS: LOVENOX SUBQ SCH (09:25)
[2017-01-27] MEDS: JANUVIA PO SCH (09:25)
[2017-01-27] MEDS: ASPIRIN PO SCH (09:25)
--- NOTE | 2017-01-27 15:22 | PROGRESS NOTE ---
DATE: 01/27/2017 SUBJECTIVE: The patient is awake. No focal complaints. He does have some upper airway congestive type noises but he has had that in the past or at least seen previously with that. OBJECTIVE: Vital signs: Blood pressure 112/54, heart rate of 90, respiratory rate 20, temperature 97.9 degrees, 100% on 3 L. Cardiovascular: Regular rate and rhythm. Pulmonary: Decreased at the bases with rhonchi. Occasional rales at the bases, right and left. GI: Soft, nontender, nondistended. Bowel sounds are positive. LABORATORY DATA: Normal white count. Hemoglobin and hematocrit are 10 and 32, platelets 255,000. Chemistry: Creatinine of 1.4, otherwise unremarkable. PROBLEM LIST: 1. Acute diastolic heart failure. He is on oral Lasix. He seems to be doing okay. Cardiology is following. 2. Acute kidney injury. He is stable on his current dose of Lasix. Continue to follow. 3. Dysphagia. I think this has been a chronic issue. We will get speech therapy to re-evaluate. 4. Dementia. Continue medications. 5. Constipation. Appears to be stable. DISPOSITION: Possibly home in the next 1-2 days pending clinical improvement. cc: Wyatt Pan MD
[2017-01-27] MEDS: XALATAN 0.005% OPH SOLN BOTH EYES SCH (22:00)
[2017-01-27] MEDS: LASIX PO SCH (22:58)
[2017-01-27] MEDS: ARICEPT PO SCH (22:59)
[2017-01-27] MEDS: FLOMAX PO SCH (22:59)
[2017-01-28] MEDS: DUONEB (A & A) INH SCH ×4 (03:21→20:30)
[2017-01-28] MEDS: ZOSYN 3.375 GM/NS 3.375 GM/50 ML IVPB IV SCH ×4 (05:04→23:00)
[2017-01-28 07:19] LABS: MANUAL DIFF NEEDED? NO
[2017-01-28 07:25] LABS: BASO% 0.2 % (0.0-0.8); EOS# 0.57 X1000 (0.0-0.7); HEMATOCRIT 34.3 % (42.0-52.0); HEMOGLOBIN 10.4 g/dL (14.0-18.0); LYMPH# 1.59 X1000 (1.2-3.4); LYMPH% 19.6 % (20.5-51.1); MCH 28.8 PG (27-31); MCHC 30.3 g/dL (33-37); MONO# 1.07 X1000 (0.11-0.59); MONO% 13.2 % (1.7-9.3); MPV 10.3 FL (7.4-10.4); PLT 262 X1000 (130-400); RBC 3.61 XMIL (4.7-6.1)
[2017-01-28] MEDS: HUMULIN R SUBQ SCH ×4 (07:38→20:51)
[2017-01-28 07:46] LABS: CALCIUM 8.7 mg/dL (8.8-10.2); POTASSIUM 4.8 mmol/L (3.5-5.1)
--- NOTE | 2017-01-28 08:30 | Diag Imaging Result Document ---
PROCEDURE NAME: CHEST-2 VIEWS - 01/28/2017 CHEST X-RAY 2 VIEWS, 01/28/2017: COMPARISON: 01/26/2017. FINDINGS: Stable cardiomegaly. There is worsening infiltrate in the right perihilar lung. Lung volumes are critically low similar to prior. There are moderate pleural effusions bilaterally. Pulmonary vascularity is distended. IMPRESSION: Worsening infiltrate in the right perihilar lung. Other findings are grossly stable from prior.
[2017-01-28] MEDS: MUCOMYST 20% INH SCH ×3 (09:24→20:30)
[2017-01-28] MEDS: MUCINEX PO SCH ×2 (09:30→20:30)
[2017-01-28] MEDS: LOPRESSOR PO SCH ×2 (09:30→20:30)
[2017-01-28] MEDS: JANUVIA PO SCH (09:30)
[2017-01-28] MEDS: LASIX PO SCH ×2 (09:30→20:30)
[2017-01-28] MEDS: ASPIRIN PO SCH (09:30)
[2017-01-28] MEDS: PROTONIX PO SCH (09:30)
[2017-01-28] MEDS: LOVENOX SUBQ SCH (09:31)
[2017-01-28] MEDS: MIRALAX PO SCH (09:31)
--- NOTE | 2017-01-28 13:24 | PROGRESS NOTE ---
DATE: 01/28/2017 SUBJECTIVE: Patient has no focal complaints. OBJECTIVE: Blood pressure 130/77, heart rate 77, respiratory rate 18, temperature 98.3 degrees, 100% on 3 L.Cardiovascular: Regular rate and rhythm. Pulmonary: Bilateral breath sounds. Diminished at the bases right greater than left. GI: Soft, nontender, nondistended. Bowel sounds are positive. Neurologic: He is much more awake, alert today but he is complaining of some choking sensations. LABORATORY DATA: White count 8, hemoglobin and hematocrit 10 and 34, platelets 262,000, creatinine is up to 1.6. PROBLEM LIST: 1. Right middle lobe pneumonia a little bit worse than previously. We will continue Mucomyst nebs, pulmonary toilet and follow. I am suspicious he is having recurrent aspiration. 2. Acute diastolic heart failure. He is stable on his current medications. Cardiology is following. 3. Chronic renal failure stage 2. We will continue to monitor while on current medications. 4. Dysphagia and dementia. I am awaiting speech therapy evaluation. He may need a modified barium. 5. Disposition: [facility] is from [facility]. May be back there 1-2 days depending on his course. cc: Wyatt Pan MD
[2017-01-28] MEDS: ARICEPT PO SCH (20:30)
[2017-01-28] MEDS: FLOMAX PO SCH (20:30)
[2017-01-29] MEDS: TYLENOL ARTHRITIS PO PRN ×2 (01:23→10:32)
[2017-01-29] MEDS: DUONEB (A & A) INH SCH ×4 (04:00→19:19)
[2017-01-29] MEDS: XALATAN 0.005% OPH SOLN BOTH EYES SCH ×2 (04:48→20:22)
[2017-01-29] MEDS: ZOSYN 3.375 GM/NS 3.375 GM/50 ML IVPB IV SCH ×4 (05:09→23:54)
[2017-01-29] MEDS: HUMULIN R SUBQ SCH ×4 (06:51→20:49)
[2017-01-29 07:01] LABS: HEMATOCRIT 31.4 % (42.0-52.0); HEMOGLOBIN 9.7 g/dL (14.0-18.0); MCH 28.9 PG (27-31); MCHC 30.9 g/dL (33-37); MCV 93.5 FL (81-99); MPV 11.4 FL (7.4-10.4); RBC 3.36 XMIL (4.7-6.1)
[2017-01-29 07:31] LABS: CALCIUM 8.5 mg/dL (8.8-10.2); MAGNESIUM 2.2 mg/dL (1.5-2.7); POTASSIUM 4.8 mmol/L (3.5-5.1)
[2017-01-29] MEDS: MUCOMYST 20% INH SCH ×3 (08:27→19:19)
[2017-01-29] MEDS ORDERED: BENADRYL IV ONE (09:02)
[2017-01-29] MEDS: LASIX PO SCH ×2 (09:44→20:22)
[2017-01-29] MEDS: ASPIRIN PO SCH (09:44)
[2017-01-29] MEDS: LOPRESSOR PO SCH ×2 (09:44→20:22)
[2017-01-29] MEDS: JANUVIA PO SCH (09:44)
[2017-01-29] MEDS: PROTONIX PO SCH (09:44)
[2017-01-29] MEDS: LOVENOX SUBQ SCH (09:45)
[2017-01-29] MEDS: MIRALAX PO SCH (09:45)
[2017-01-29] MEDS: MUCINEX PO SCH ×2 (09:45→20:22)
--- NOTE | 2017-01-29 10:17 | EKG Report ---
Test Performed on : 01/29/2017 09:59:28 AM Test Reason : chest pain last night Blood Pressure : / mmHG Vent. Rate : 075 BPM Atrial Rate : 075 BPM P-R Int : 248 ms QRS Dur : 096 ms QT Int : 394 ms P-R-T Axes : 056 -84 008 degrees QTc Int : 439 ms Sinus rhythm. with 1st degree AV block. Left axis deviation Cannot rule out Anterior infarct (cited on or before 26-JAN-2017) Abnormal ECG When compared with ECG of 26-JAN-2017 08:28, Questionable change in initial forces of Anteroseptal leads Nonspecific T wave abnormality now evident in Anterior leads Confirmed by Javier DALLAS, Mayur Mederos ([id number]) on 01/31/2017 9:28:46 PM
[2017-01-29] MEDS ORDERED: HYDROXYZINE LIQUID PO PRN (10:33)
--- NOTE | 2017-01-29 11:34 | PROGRESS NOTE ---
DATE: 01/29/2017 SUBJECTIVE: Mr. Hsusein is an 81-year-old, male. He is in no acute distress, but he does state that he has some shortness of breath and 3/10 chest pain that feels chronic in nature. States he still continues to have difficulties with swallowing. Reviewing the nursing notes from around 1 a.m. this morning, the patient had some complaints of chest pain and shortness of breath. His oxygen was off, but was turned back on at 2 L and his O2 saturations came up to 100%. He had some seizure-like activity for 10 seconds, was unresponsive. His eyes rolled back in the back of his head and was holding his arms close to the chest. Apparently he quickly came back to consciousness. There was no history of seizures for this patient. He was given nitroglycerin for pain and Tylenol for pain. OBJECTIVE: Vital Signs: Temperature is 98.1 degrees, heart rate 73, respiratory rate 18, blood pressure 113/59, O2 saturation 100% on 3 L nasal cannula. General: Mr. Hussein is an 81-year- old, male. He is in no acute distress, but does kind of some mild shortness of breath. Cardiovascular: S1, S2. Regular rate and rhythm. No rubs, gallops, or murmurs. Pulmonary: Difficult to listen as patient was groaning and would not stop groaning to allow me to adequately auscultate. GI: Soft, nontender, nondistended. Positive bowel sounds x4. Neuro: Oriented to name. LABORATORY DATA: White blood cells 8000, hemoglobin 9.7, hematocrit 31.4, platelet count 240. Sodium 141, potassium 4.8, BUN 42, creatinine is 1.7, glucose 187, calcium 8.5. IMAGING: EKG: Sinus rhythm with first-degree AV block. Rate was 75, QTc is 439. Chest x-ray on 01/28: Showed worsening infiltrates in the right perihilar lobe, and other findings were stable. ASSESSMENT AND PLAN: 1. Right middle lobe pneumonia. Will continue Zosyn 3.375 intravenous every 6 hours. Continue nebulizers, aggressive pulmonary toilet, and will do modified barium swallow today to rule out risk for aspiration. 2. Acute diastolic heart failure. Continue on Lasix. Consider decreasing as creatinine is increasing. Cardiology is following. Continue beta vera. 3. Chronic kidney disease stage II. Again, may consider decreasing diuretics. Creatinine starting to increase. 4. Dysphagia. Modified barium swallow today. 5. Disposition: longterm chronically. Dictated by EMMA Velez for Wyatt Pan MD cc: EMMA Velez MD MTDD
--- NOTE | 2017-01-29 11:52 | Diag Imaging Result Document ---
PROCEDURE NAME: HEAD W/O CONTRAST - 01/29/[address]: A CT dose reduction protocol was used. COMPARISON: 11/06/2016. FINDINGS: There is grossly stable, moderately extensive periventricular white matter chronic microvascular disease. The ventricles and sulci are normal in size and contour. No intracranial mass or hemorrhage. The skull is intact. The sinuses, mastoids, and middle ears are clear. IMPRESSION: Chronic ischemic changes of the brain. No acute disease or change from prior. [facility]
--- NOTE | 2017-01-29 13:32 | Diag Imaging Result Document ---
PROCEDURE NAME: BA SWALLOW W/VIDEO SPEECH THER - 01/29/2017 MODIFIED BARIUM SWALLOW: COMPARISON: 04/06/2015. FINDINGS: Total fluoroscopy time was 30 seconds. 171 images were obtained. On the first sip of thin liquids, there was penetration with a small amount of aspiration below the vocal cords. There was no immediate coughing. Pureed consistencies were taken without difficulty. With more thin liquids, there was some penetration but no aspiration. Evaluation of the esophagus was performed. There is extremely severe tertiary wave formation with to and fro peristalsis resulting in delayed clearance of the esophagus. IMPRESSION: 1. Several penetrations with 1 episode of silent aspiration with thin liquids. 2. Severe presbyesophagus.
[2017-01-29] MEDS: ARICEPT PO SCH (20:22)
[2017-01-29] MEDS: FLOMAX PO SCH (20:22)
[2017-01-30] MEDS: DUONEB (A & A) INH SCH ×4 (03:08→19:57)
[2017-01-30] MEDS: ZOSYN 3.375 GM/NS 3.375 GM/50 ML IVPB IV SCH ×4 (05:52→22:23)
[2017-01-30] MEDS: HUMULIN R SUBQ SCH ×4 (06:44→22:33)
[2017-01-30] MEDS: MUCOMYST 20% INH SCH ×2 (08:25→19:57)
[2017-01-30 09:03] LABS: MANUAL DIFF NEEDED? NO
[2017-01-30 09:12] LABS: BASO% 0.3 % (0.0-0.8); EOS# 0.42 X1000 (0.0-0.7); EOS% 5.9 % (0.0-10.0); HEMATOCRIT 29.8 % (42.0-52.0); HEMOGLOBIN 9.2 g/dL (14.0-18.0); LYMPH# 1.71 X1000 (1.2-3.4); LYMPH% 23.8 % (20.5-51.1); MCH 28.8 PG (27-31); MCHC 30.9 g/dL (33-37); MCV 93.4 FL (81-99); MONO# 0.86 X1000 (0.11-0.59); MPV 11.1 FL (7.4-10.4); PLT 231 X1000 (130-400); RBC 3.19 XMIL (4.7-6.1)
[2017-01-30 09:28] LABS: CALCIUM 8.7 mg/dL (8.8-10.2); MAGNESIUM 2.4 mg/dL (1.5-2.7); POTASSIUM 4.3 mmol/L (3.5-5.1)
--- NOTE | 2017-01-30 09:44 | Diag Imaging Result Document ---
PROCEDURE NAME: CHEST-2 VIEWS - 01/30/2017 CHEST X-RAY, 2 VIEWS: COMPARISON: 01/28/2017. FINDINGS: Stable critically low lung volumes. Stable cardiomegaly. Stable extensive bilateral infiltrates. Stable bilateral pleural effusions. IMPRESSION: No change from prior.
[2017-01-30] MEDS: PROTONIX PO SCH (10:08)
[2017-01-30] MEDS: MUCINEX PO SCH ×2 (10:08→22:00)
[2017-01-30] MEDS: LASIX PO SCH (10:08)
[2017-01-30] MEDS: JANUVIA PO SCH (10:08)
[2017-01-30] MEDS: LOPRESSOR PO SCH ×2 (10:08→22:00)
[2017-01-30] MEDS: MIRALAX PO SCH (10:09)
[2017-01-30] MEDS: LOVENOX SUBQ SCH (10:09)
[2017-01-30] MEDS: ASPIRIN PO SCH (10:09)
--- NOTE | 2017-01-30 10:54 | Diag Imaging Result Document ---
PROCEDURE NAME: GI SERIES WITH BA SWALLOW - 01/30/2017 UPPER GI: FINDINGS: Thin barium was swallowed with good coating of the esophagus with filling of the stomach. The patient had tertiary contractions. No esophageal mass or stricture. The patient aspirated thin barium during swallowing. Further swallowing was thus not performed and the stomach was not completely distended. No reflux occurred during the exam. No esophagitis. IMPRESSION: 1. Patient aspirated a small amount of thin barium during swallowing. 2. Tertiary contractions. FLUOROSCOPY TIME: 27 seconds. TOTAL DOSE: 707.5 cGy cm2.
--- NOTE | 2017-01-30 11:21 | PROGRESS NOTE ---
DATE: 01/30/2017 SUBJECTIVE: Mr. Hussein is an 81-year-old, male. He is in no acute distress. He is currently being assisted with eating his breakfast by his family who is at the bedside. His breakfast is consistent with mechanical soft foods. It appears that he is having no difficulties with swallowing at this time. He states that he has been busy this morning, going to radiology which he has had an order for an upper GI series. On his modified barium swallow, he had the presbyesophagus. He also had a silent aspiration episode with thin liquids. He states that his chest pains and shortness of breath feel much better today. OBJECTIVE: Vital Signs: Temperature is 97 degrees, heart rate 64, respiratory rate 20, blood pressure 135/80, O2 saturation 100% on nasal cannula. General: Mr. Hussein is an 81-year-old, male, in no acute distress, and is able to answers questions appropriately. Cardiovascular: S1, S2. Regular rate and rhythm. No rubs, gallops, or murmurs. Pulmonary: Clear to auscultate bilateral breath sounds. No accessory muscle use or work of breathing noted. Currently on nasal cannula. GI: Soft, nontender, nondistended. Positive bowel sounds x4. Extremities: No edema noted in the lower extremity stumps. There are +2 radial pulses in the upper extremities. No edema. Laboratory Data: White blood cells 7000, hemoglobin 9, hematocrit 29, platelet count 231,000. Sodium 142, potassium 4.3, BUN 48, creatinine is 1.9, glucose 139, calcium 8.7. Phosphorus 4.4, magnesium 2.4. Imaging: Upper GI series pending. Chest x-ray, low lung volumes, cardiomegaly that is stable, stable extensive bilateral infiltrates, and stable bilateral pleural effusions. Modified barium swallow showed severe penetrations with 1 episode of silent aspiration with thin liquids and also showed severe presbyesophagus. An EKG yesterday showed sinus rhythm with a first-degree AV block. ASSESSMENT AND PLAN: 1. Right middle lobe pneumonia and chest x-ray showed bilateral infiltrates that were stable. We will continue Zosyn 3.375 intravenous every 6 hours. Continue nebulizers and pulmonary toilet. He did have a modified barium swallow yesterday that showed 1 silent aspiration event after thin liquids. 2. Acute diastolic heart failure. He is on Lasix. Creatinine is starting to increase daily. Cardiology is following. Continue beta vera. 3. Chronic kidney disease stage II. Currently is on 40 of Lasix twice a day. We will change to 40 daily as patient is starting to have a bump in his creatinine. 4. Dysphagia. We will follow up with the upper gastrointestinal series. 5. Disposition. He is a resident at [facility]. Dictated by EMMA Velez for Wyatt Pan MD cc: EMMA Velez MD pt examined, agree with above, chronic aspiration it looks like, family has refused PEG in the past, may need to consider hospice [facility] MTDD
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
[2017-01-30] MEDS: XALATAN 0.005% OPH SOLN BOTH EYES SCH (22:00)
[2017-01-30] MEDS: ARICEPT PO SCH (22:00)
[2017-01-30] MEDS: FLOMAX PO SCH (22:24)
[2017-01-31] MEDS: DUONEB (A & A) INH SCH ×4 (03:13→19:50)
[2017-01-31 06:56] LABS: MANUAL DIFF NEEDED? NO
[2017-01-31] MEDS: HUMULIN R SUBQ SCH ×4 (07:03→21:13)
[2017-01-31 07:10] LABS: BASO% 0.4 % (0.0-0.8); EOS# 0.43 X1000 (0.0-0.7); EOS% 6.4 % (0.0-10.0); HEMATOCRIT 31.7 % (42.0-52.0); HEMOGLOBIN 9.7 g/dL (14.0-18.0); LYMPH# 1.68 X1000 (1.2-3.4); LYMPH% 24.9 % (20.5-51.1); MCHC 30.6 g/dL (33-37); MCV 94.6 FL (81-99); MONO# 0.74 X1000 (0.11-0.59); MONO% 10.9 % (1.7-9.3); MPV 11.7 FL (7.4-10.4); NEUT% 57.4 % (42.2-75.2); PLT 266 X1000 (130-400); RBC 3.35 XMIL (4.7-6.1)
[2017-01-31 07:20] LABS: ALBUMIN 3.1 g/dL (3.5-5.0); CALCIUM 8.6 mg/dL (8.8-10.2); MAGNESIUM 2.5 mg/dL (1.5-2.7); POTASSIUM 4.5 mmol/L (3.5-5.1); TOTAL BILIRUBIN 0.25 mg/dL (0.20-1.00); TOTAL PROTEIN 6.1 g/dL (6.3-8.3)
[2017-01-31] MEDS: MUCOMYST 20% INH SCH ×3 (08:48→19:49)
[2017-01-31] MEDS: MIRALAX PO SCH (10:20)
[2017-01-31] MEDS: JANUVIA PO SCH (10:21)
[2017-01-31] MEDS: MUCINEX PO SCH ×2 (10:21→21:12)
[2017-01-31] MEDS: ASPIRIN PO SCH (10:23)
[2017-01-31] MEDS: LASIX PO SCH (10:23)
[2017-01-31] MEDS: LOVENOX SUBQ SCH (10:23)
[2017-01-31] MEDS: PROTONIX PO SCH (10:24)
[2017-01-31] MEDS: LOPRESSOR PO SCH ×2 (10:24→21:13)
[2017-01-31] MEDS: ZOSYN 3.375 GM/NS 3.375 GM/50 ML IVPB IV SCH ×3 (12:25→23:51)
--- NOTE | 2017-01-31 14:39 | DISCHARGE SUMMARY ---
ADMISSION DATE: 01/23/2017 DISCHARGE DATE: CONSULTATIONS: 1. Dr. Lozada, Cardiology. 2. Sofia Figueroa, with Palliative Care. PERTINENT PROCEDURES: Chest CT showed no change from prior. Echocardiogram, EF of 65%. Modified barium swallow showed several penetrations with 1 episode of silent aspiration with thin liquids. Severe presbyesophagus. Upper GI barium x-ray showed patient aspirated a small amount of thin barium and tertiary contractions. DISCHARGE DIAGNOSES: 1. Right middle lobe pneumonia. Will continue with p.o. Augmentin. Follow strict aspiration precautions. 2. Acute diastolic heart failure. Continue on Lasix as well as beta vera. 3. Chronic kidney disease stage 2. 4. Dysphagia. Aware. Will be on aspiration precautions. HOSPITAL COURSE: Briefly, Mr. Hussein is an 81-year-old male, known to our service. Longstanding history of type 2 diabetes, hypertension, CVA with dysphagia, status post bilateral BKA with dementia who presented with 3 days of worsening shortness of breath and generalized pain. Reports orthopnea and chest pain. Laboratory data was consistent with mild anemia. He had a troponin elevation as well as a proBNP elevation consistent with heart failure. Chest x-ray consistent with pneumonia in the left lung base which was called significant but stable. He has been admitted multiple times in the past for chronic troponin elevations as well as proBNP elevations. His EKG shows sinus rhythm with nonspecific ST and T- wave changes with 1st degree AV block, unchanged from previous EKGs. The patient was admitted for healthcare associated pneumonia as well as acute on chronic diastolic heart failure. The patient was diuresed and edema free state. Cardiology consulted for elevated troponins as well as started on IV antibiotics. He did have an echocardiogram and revealed an EF of 65% with moderate concentric left hypertrophy, mild mitral regurgitation. Cardiology felt that his elevated troponin was multifactorial from his diastolic heart failure as well as his chronic status. Patient was suspicious for recurrent aspiration. He did undergo a modified barium swallow. This showed several penetrations with 1 episode of silent aspiration with thin liquids and severe presbyesophagus. Palliative Care was also brought in to talk with the family and the patient about goals of care related to his congestive heart failure. They spoke with the son and [id number] and their goal is for him to be discharged back to long-term care. They discussed the state of his current health as well as his progressive nature of his congestive heart failure and he remains a full code. The patient's chest pain, as well as shortness of breath has improved over the course of this hospital stay. He has been diuresed to an edema free state. He is appropriate for discharge back to long- term care at [facility]. Vital Signs: Temperature is 96.3 degrees, heart rate 61, respirations 24, blood pressure 115/63, O2 is 100% on 2 L nasal cannula. DISCHARGE DIET: Mechanical soft with Glucerna, strict aspiration precautions. DISCHARGE MEDICATIONS: 1. Tylenol Arthritis 650 mg p.o. p.r.n. 2. DuoNeb 3 mL inhaled RT q.6 hours. 3. Augmentin 875/125, 1 each p.o. q.12 hours. 4. Aspirin 81 mg p.o. daily. 5. Aricept 5 mg p.o. at bedtime. 6. Lasix 20 mg p.o. daily. 7. Metoprolol 25 mg p.o. daily. 8. Protonix 40 mg p.o. daily. 9. MiraLAX 17 g p.o. daily. 10. Flomax 0.4 mg p.o. at bedtime. 11. Xalatan ophthalmic solution 1 drop both eyes at bedtime. FOLLOWUP: Patient is being discharged back to [facility] for long-term care. Patient will need to continue a course of antibiotics. He is to return to the ED for any worsening symptoms. Discharge time greater than 30 minutes. Dictated by EMMA Mello for Wyatt Pan MD cc: Wyatt Pan MD pt stable for dc, obviously a recurrent aspiration risk, family aware, have refused PEG in the past, may be hospice appropriate [facility]
[2017-01-31] MEDS: XALATAN 0.005% OPH SOLN BOTH EYES SCH (21:13)
[2017-01-31] MEDS: ARICEPT PO SCH (21:13)
[2017-01-31] MEDS: FLOMAX PO SCH (21:13)
[2017-02-01] MEDS: DUONEB (A & A) INH SCH ×2 (03:04→08:46)
[2017-02-01] MEDS: ZOSYN 3.375 GM/NS 3.375 GM/50 ML IVPB IV SCH (05:10)
[2017-02-01 06:45] LABS: MANUAL DIFF NEEDED? NO
[2017-02-01 06:48] LABS: HEMOGLOBIN 9.7 g/dL (14.0-18.0)
[2017-02-01] MEDS: HUMULIN R SUBQ SCH (06:51)
[2017-02-01 06:53] LABS: BASO% 0.3 % (0.0-0.8); EOS# 0.32 X1000 (0.0-0.7); EOS% 4.1 % (0.0-10.0); HEMATOCRIT 32.1 % (42.0-52.0); LYMPH# 1.42 X1000 (1.2-3.4); LYMPH% 18.1 % (20.5-51.1); MCH 28.7 PG (27-31); MCHC 30.2 g/dL (33-37); MONO# 0.88 X1000 (0.11-0.59); MONO% 11.2 % (1.7-9.3); MPV 11.6 FL (7.4-10.4); NEUT% 66.3 % (42.2-75.2); PLT 269 X1000 (130-400); RBC 3.38 XMIL (4.7-6.1)
[2017-02-01 07:06] LABS: ALBUMIN 3.1 g/dL (3.5-5.0); CALCIUM 8.4 mg/dL (8.8-10.2); MAGNESIUM 2.4 mg/dL (1.5-2.7); POTASSIUM 4.4 mmol/L (3.5-5.1); TOTAL BILIRUBIN 0.23 mg/dL (0.20-1.00); TOTAL PROTEIN 7.2 g/dL (6.3-8.3)
[2017-02-01] MEDS: MUCOMYST 20% INH SCH (08:45)
[2017-02-01] MEDS: MUCINEX PO SCH (09:23)
[2017-02-01] MEDS: LOPRESSOR PO SCH (09:23)
[2017-02-01] MEDS: LASIX PO SCH (09:23)
[2017-02-01] MEDS: JANUVIA PO SCH (09:23)
[2017-02-01] MEDS: LOVENOX SUBQ SCH (09:24)
[2017-02-01] MEDS: PROTONIX PO SCH (09:24)
[2017-02-01] MEDS: ASPIRIN PO SCH (09:24)
[2017-02-01] MEDS: MIRALAX PO SCH (09:24)
[2017-02-01 10:26] VITALS: BP 139/73
== END 2017-02-01 11:02 ==
LOC: ED 12:46 → SUATTDRO 18:01 → 3N 18:01
PROVIDERS: ATTEND Internal Medicine